=== PATIENT | male | born 1965 | race Hispanic/Latino ===

== ENCOUNTER → 2024-09-19 | Day surgery (SDC) | payer BC ==
[~2024-09-19] MED LIST: AMLODIPINE BESY10 MG PO; LEVOTHYROXINE50 MCG PO; LOSARTAN POTAS100 MG PO
[2024-09-19] MEDS: LACTATED RINGER'S 1,000 ML ONE (13:53)
[2024-09-19 16:55] VITALS: BP 129/95; PULSE 62; RESP 17; TEMP 97.1; O2SAT 97
== END | disposition home or self-care (01) ==
LOC: OR 13:23
PROVIDERS: ATTEND Internal Medicine Gastroenterology
DX: Z12.11 Encounter for screening for malignant neoplasm of colon (principal); D12.3 Benign neoplasm of transverse colon; K63.5 Polyp of colon; K64.8 Other hemorrhoids; K57.30 Diverticulosis of large intestine without perforation or abscess without bleeding; R74.8 Abnormal levels of other serum enzymes; I10 Essential (primary) hypertension; E78.5 Hyperlipidemia, unspecified; E03.9 Hypothyroidism, unspecified; F17.200 Nicotine dependence, unspecified, uncomplicated; Z01.810 Encounter for preprocedural cardiovascular examination
CPT/HCPCS: 45384; 93005; J7121; 45378